=== PATIENT | male | born 1970 | race Caucasian/White ===

== ENCOUNTER 2016-07-05 18:59 | Emergency (ER) | payer MEDICAID, BC ==
--- NOTE | 2016-07-05 21:32 | ED ---
Wm Bellamy Janilya, scribed for Shahnaz Florentino MD on 07/05/16 at 205 . Skin Complaint - HPI Summary HPI Summary: A 45 y/o male came in to [facility] presenting w/ a gradual onset of constant rashes for the past couple days. Severity rated 3/10. The rash is on the forehead and hairline. Pt states it is painful to touch. Nothing makes the pain better or worse. Pt denies ear ache. Pt normally takes Lamotrigine, Sertraline, Atenolol. - History of Current Complaint Chief Complaint: EDRashSkinAbscess Time Seen by Provider: 07/05/16 20:46 Stated Complaint: FACIAL RASH Hx Obtained From: Patient Onset/Duration: Started Days Ago, Atraumatic, Still Present Skin Exposure Onset/Duration: Days Ago Timing: Constant Onset Severity: Moderate Current Severity: Moderate Pain Intensity: 3 Pain Scale Used: 0-10 Numeric Skin Location: Face Aggravating Symptom(s): Nothing Alleviating Symptom(s): Nothing - Allergy/Home Medications Allergies/Adverse Reactions: Allergies Allergy/AdvReac Type Severity Reaction Status Date / Time Penicillins Allergy Hives Verified 01/13/16 05:23 PMH/Surg Hx/FS Hx/Imm Hx Previously Healthy: Yes Cardiovascular History: Denies: Hx Pacemaker/ICD Sensory History: Denies: Hx Hearing Aid Neurological History: Reports: Hx Seizures Psychiatric History: Denies: Hx Panic Disorder - Surgical History Surgery Procedure, Year, and Place: lt eye verisyse implant phakic IOL. rt eye verisyse implant removed 12/14/12 at [facility]. muscle eye surgery as a child Infectious Disease History: No Infectious Disease History: Denies: Traveled Outside the [place] in Last 30 Days - Family History Known Family History: Positive: Hypertension, Diabetes, Other - pt denies FHx of seizures Negative: Cardiac Disease - Social History Alcohol Use: None Hx Substance Use: No Substance Use Type: Reports: None Hx Tobacco Use: No Smoking Status (MU): Never Smoked Tobacco Review of Systems Negative: Ear Ache Positive: Rash All Other Systems Reviewed And Are Negative: Yes Physical Exam Triage Information Reviewed: Yes Vital Signs On Initial Exam: Initial Vitals Temp Pulse Resp BP Pulse Ox 97.6 F 84 20 148/83 99 07/05/16 19:04 07/05/16 19:04 07/05/16 19:04 07/05/16 19:04 07/05/16 19:04 Vital Signs Reviewed: Yes Appearance: Positive: Well-Appearing, No Pain Distress Skin: Positive: Warm, Skin Color Reflects Adequate Perfusion, Other - Vesicular rash on forehead and nose; none on the ears. Eyes: Positive: EOMI, TYSHAWN, Other: - No dendrites, no abrasions ENT: Positive: Pharynx normal, TMs normal Neck: Positive: Supple, Nontender Respiratory/Lung Sounds: Positive: Clear to Auscultation, Breath Sounds Present. Negative: Rales, Rhonchi, Wheezes Cardiovascular: Positive: RRR, Pulses are Symmetrical in both Upper and Lower Extremities. Negative: Murmur, Rub, Other - no gallops Abdomen Description: Positive: Nontender, Soft. Negative: Distended, Guarding, Other: - no rebound Bowel Sounds: Positive: Present Musculoskeletal: Positive: Strength/ROM Intact. Negative: Edema Left, Edema Right Neurological: Positive: Sensory/Motor Intact, Alert, Oriented to Person Place, Time, CN Intact II-III Psychiatric: Positive: Affect/Mood Appropriate Diagnostics - Vital Signs Vital Signs Temp Pulse Resp BP Pulse Ox 07/05/16 20:29 98.1 F 81 16 138/86 98 07/05/16 19:04 97.6 F 84 20 148/83 99 - Laboratory Lab Statement: Any lab studies that have been ordered have been reviewed, and results considered in the medical decision making process. Course/Dx - Course Course Of Treatment: A 45 y/o male came in to [facility] presenting w/ a gradual onset of constant rashes for the past couple days. Severity rated 3/10. The rash is on the forehead and hairline. Pt states it is painful to touch. Nothing makes the pain better or worse. Pt denies ear ache. Pt normally takes Lamotrigine, Sertraline, Atenolol. pt started on valacyclovir, gabapentin, and vicodin for pain. Meds were checked for interactions and there were none. Eye was checked for dendrites on cornea and it looked fine, ear no vesicles. Urged mom to take pt to see ophthamologist to get a recheck and to see pmd for pain control - Diagnoses Provider Diagnoses: Shingles Discharge - Discharge Plan Condition: Stable Disposition: HOME Prescriptions: Gabapentin CAP(*) [Neurontin 300 CAP(*)] 300 mg PO TID #30 cap HYDROcodone/ACETAMIN 5-325 MG* [[place] 5-325 TAB*] 1 tab PO Q8H PRN #14 tab MDD 3 PRN Reason: Pain ValACYclovir (*) [Valtrex 1 GM(*)] 1 gm PO TID #19 tab Patient Education Materials: Dona (ED) Referrals: Alber Anderson NP [Primary Care Provider] - 2 Days Byron Ferguson [Medical Doctor] - 2 Days The documentation as recorded by the Wm dominguez Janilya accurately reflects the service I personally performed and the decisions made by me, Shahnaz Florentino MD.
[2016-07-05] MEDS: Gabapentin CAP(*) 300 MG PO ONE ×2 (22:05→22:15)
[2016-07-05] MEDS ORDERED: ValACYclovir (*) 1 GM TAB PO ONE (23:00)
[2016-07-05 23:01] VITALS: BP 141/80
== END 2016-07-05 22:54 | disposition home or self-care (01) ==
LOC: ED 18:59
DX: B02.9 Zoster without complications (principal); R21 Rash and other nonspecific skin eruption
CPT/HCPCS: 99282; A9270-GY